=== PATIENT | female | born 1960 | race Hispanic/Latino ===

== ENCOUNTER 2024-08-17 16:02 | Emergency (ER) | payer OTHER ==
[~2024-08-17] VITALS: Ht 162.6 cm; Wt 97.1 kg
--- NOTE | 2024-08-17 16:24 | NUR ---
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 OCCURED AT [address] [facility] IN [facility]
--- NOTE | 2024-08-17 16:25 | NUR ---
TC TO [place] [employer], TALKED TO PT VIA PHONE, ADVISED PT TO GO IN TO POLICE STATION AFTER DISCHARGE
[2024-08-17] MEDS ORDERED: AMOX1TAB16 PO (16:27)
[2024-08-17] MEDS ORDERED: IBUP-2077 PO (16:27)
[2024-08-17] MEDS ORDERED: MUPI22O TP (16:27)
[2024-08-17 16:28] VITALS: BP 163/76; PULSE 66; RESP 16; TEMP 97.9; O2SAT 98
--- NOTE | 2024-08-17 16:28 | ERN ---
ED Note History of Present Illness Stated Complaint: DOG BITES Chief Complaint: Animal Bite Time Seen by MD: 16:07 Dictation: PATIENT IS A 64-YEAR-OLD FEMALE HERE WITH SEVERAL PUNCTURE WOUNDS TO THE POSTERIOR RIGHT CALF BY HER PUPPIES1 HOUR PRIOR TO ARRIVAL. SHE STATES THE DOGS BELONG TO HER AND HER FULLY VACCINATED. SHE STATES HER LAST TETANUS SHOT IS UNKNOWN AND HAS NO ALLERGIES TO MEDICATIONS. Allergies: Coded Allergies: No Known Allergies (Unverified Allergy, Unknown, 08/17/24) Home Meds Active Scripts Ibuprofen (Ibuprofen 800 mg Tab) 800 Mg Tab, 800 MG PO Q8H PRN for fever or pain, #30 TAB 0 Refills Prov:ABDIRAHMAN CHERRY ADMINISTRATIVE HEARING OFFICER 08/17/24 Mupirocin (Bactroban 2% Oint) 2 % Oint, 1 APPL TP TID for 5 Days, #15 GM 0 Refills apply to affected area(s) Prov:ABDIRAHMAN CHERRY NP 08/17/24 Amoxicillin/Potassium Clav (Amox Tr-K Clv 875-125 mg Tab) 875 Mg-125 Mg Tablet, 1 EACH PO BID for 7 Days, #14 TAB 0 Refills Prov:ABDIRAHMAN CHERRY NP 08/17/24 Past Medical History Past Medical History: Diabetes-Type II Surgical History: Other Surgical History Other: HAND History: Not Applicable RN Note Reviewed/Agreed w/PFSH: Yes Review of System Dictation CONSTITUTIONAL: NEGATIVE EXCEPT FOR HPI HEAD/FACE: NEGATIVE EXCEPT FOR HPI EENT: NEGATIVE EXCEPT FOR HPI RESPIRATORY: NEGATIVE EXCEPT FOR HPI GASTROINTESTINAL/ABDOMINAL: NEGATIVE EXCEPT FOR HPI GENITOURINARY: NEGATIVE EXCEPT FOR HPI MUSCULOSKELETAL: NEGATIVE EXCEPT FOR HPI PUNCTURE WOUNDS TO POSTERIOR RIGHT CALF NO ACTIVE BLEEDING INTEGUMENTARY: NEGATIVE EXCEPT FOR HPI NEUROLOGICAL/PSYCH: NEGATIVE EXCEPT FOR HPI HEMATOLOGIC/LYMPHATIC: NEGATIVE EXCEPT FOR HPI ALL SYSTEMS NEGATIVE, EXCEPT NOTED ABOVE. 13 POINT REVIEW OF SYSTEMS ASSESSED AND ALL NEGATIVE EXCEPT FOR ABOVE. Initial Vital Sign VS Vital Signs Date Time Temp Pulse Resp B/P (MAP) Pulse Ox O2 Delivery O2 Flow Rate FiO2 08/17/24 16:16 97.9 66 16 163/76 98 Room Air 0 08/17/24 16:28 21 Physical Exam Dictation VITAL SIGNS REVIEWED GENERAL APPEARANCE: ALERT, ORIENTED X 3, MILD ACUTE DISTRESS, WELL DEVELOPED, NOURISHED. HEAD AND FACE: NON-TRAUMATIC. EYES: PERRL, PINK CONJUNCTIVAS, EYELID NO TRAUMA, ANTERIOR CHAMBER WITH ARCUS SENILIS. EARS: PINNAS INTACT AND NO SIGNS OF TRAUMA OR ERYTHEMA EAR CANALS CLEAR AND NO DISCHARGE TM NO ERYTHEMA NOSE: NO DISCHARGE, NO BLEEDING. OROPHARYNX: MOUTH NORMAL, TONGUE PINK, PHARYNX CLEAR,NO ERYTHEMA, TONSILS NO EXUDATES, NO ABSCESSES NOTED, MUCOUS MEMBRANE MOIST NECK: SUPPLE, NON-TENDER, NO THYROMEGALY, NO MASSES, NO JVD, NO BRUITS BREAST:DEFERRED CHEST:NO TENDERNESS, NO CREPITUS, NO PARADOXICAL MOVEMENT, NO RETRACTIONS LUNGS:CLEAR, WELL-VENTILATED, SYMMETRIC, NO RALES, NO WHEEZING, NO RHONCHI, NO STRIDOR, GOOD BREATH SOUNDS BILATERALLY HEART: REGULAR RATE, REGULAR RHYTHM, NO MURMUR, NO GALLOPS VASCULAR: NO PERIPHERAL EDEMA, ABDOMEN: SOFT, POSITIVE BOWEL SOUNDS, NONDISTENDED, NO GUARDING, NONTENDER, NO REBOUND, NO MASSES NO HEPATOMEGALY, NO SPLENOMEGALY, NO UGARTE'S SIGN, NO HERNIAS. RECTAL: DEFERRED GENITAL: DEFERRED NEUROLOGICAL: NORMAL SPEECH, MOTOR FUNCTION INTACT, SENSORY FUNCTION INTACT MUSCULOSKELETAL: NECK NONTENDER, FULL RANGE OF MOTION, BACK NONTENDER, FULL RANGE OF MOTION, EXTREMITIES: NONTENDER, FULL RANGE OF MOTION SKIN: COLOR PINK, DRY, MULTIPLE PUNCTURE WOUNDS TO POSTERIOR RIGHT CALF, NO ACTIVE BLEEDING. NO SUTURE REPAIR REQUIRED. LYMPHATIC: DEFERRED Results (Laboratory/Radiology) Labs Reviewed?: Yes ED Course ED Course Orders Procedure Category Date Status Time Amox/Clav 875/125mg PHA 08/17/24 Complete Tab (Augmentin 875-1 16:30 Ketorolac 60mg/2ml PHA 08/17/24 Complete (Toradol 60mg/2ml) 16:30 Neomy PHA 08/17/24 Complete Sulf/Bacitra/Polymyxin 16:30 Acetaminophen 500mg PHA 08/17/24 Complete Tab (Tylenol 500mg T 16:30 *Nursing CPOE 08/17/24 Transmitted Communication: 16:19 Current Medications Medications (Trade) Dose Ordered Sig/Kartik Route PRN Reason Start Time Stop Time Status Last Admin Dose Admin Acetaminophen (TYLenol 500MG TAB) 1,000 mg ONCE ONCE PO 08/17/24 16:30 08/17/24 16:31 DC 08/17/24 16:34 Amoxicillin/ Clavulanate Potassium (Augmentin 875-125 Tablet) 1 each ONCE ONCE PO 08/17/24 16:30 08/17/24 16:31 DC 08/17/24 16:35 Ketorolac Tromethamine (toRADol 60MG/ 2ML) 60 mg ONCE ONCE IM 08/17/24 16:30 08/17/24 16:31 DC 08/17/24 16:35 Neomycin/ Polymyxin/ Bacitracin (Triple Antibiotic Ointment) 1 appl ONCE ONCE TP 08/17/24 16:30 08/17/24 16:31 DC 08/17/24 16:35 Vital Signs Date Time Temp Pulse Resp B/P (MAP) Pulse Ox O2 Delivery O2 Flow Rate FiO2 08/17/24 16:28 97.9 66 16 163/76 98 Room Air* 0 21 08/17/24 16:16 97.9 66 16 163/76 98 Room Air 0 1625/NO LABS OR IMAGING INDICATED. PATIENT WILL BE TREATED EMPIRICALLY WITH AUGMENTIN 875, TETANUS SHOT WE WILL BE UPDATED AND LAW ENFORCEMENT WE WILL BE NOTIFIED. Medical Decision Making MDM MEDICAL DISCHARGE MAKING BASED ON EMPIRIC TREATMENT FOR A DOG BITE WITH PUNCTURE WOUNDS TO RIGHT CALF TETANUS SHOT WAS UPDATED PATIENT LOADED WITH THE AUGMENTIN 875 DRESSINGS WERE APPLIED TO PUNCTURE WOUNDS PATIENT INSTRUCTED TO FOLLOW UP WITH HER PRIMARY CARE MDM: Differential diagnosis: Dog bite, puncture wound Risk of complication and/or morbidity or mortality of patient management: None Medications-Per medication reconciliation Need for hospitalization: Patient does not meet criteria for hospitalization. Need for emergency major/minor surgery: No There are no social concerns with this patient. Prescription drug management Prescriptions will include symptomatic care I independently interpreted the test that were performed, results were reviewed by me and considered findings on radiology if order DX & DISP Disposition: Discharge Departure Impression: Primary Impression: Dog bite of right calf Additional Impression: Puncture wound Condition: Stable Scripts Ibuprofen (Ibuprofen 800 mg Tab) 800 Mg Tab 800 MG PO Q8H PRN for fever or pain, #30 TAB 0 Refills Prov: ABDIRAHMAN CHERRY NP 08/17/24 Mupirocin (Bactroban 2% Oint) 2 % Oint 1 APPL TP TID for 5 Days, #15 GM 0 Refills apply to affected area(s) Prov: ABDIRAHMAN CHERRY ADMINISTRATIVE HEARING OFFICER 08/17/24 Amoxicillin/Potassium Clav (Amox Tr-K Clv 875-125 mg Tab) 875 Mg-125 Mg Tablet 1 EACH PO BID for 7 Days, #14 TAB 0 Refills Prov: ABDIRAHMAN CHERRY NP 08/17/24 Additional Instructions: FOLLOW-UP WITH PRIMARY CARE PROVIDER IN 1 TO 2 DAYS. TAKE MEDICATIONS DIRECTED HERE IN THE EMERGENCY ROOM. OKAY TO CONTINUE HOME MEDICATIONS UNLESS OTHERWISE DISCUSSED DURING YOUR VISIT IN THE EMERGENCY ROOM TODAY. RETURN TO YOUR NEAREST EMERGENCY ROOM IF SYMPTOMS WORSEN OR IF THERE IS NO IMPROVEMENT. CALL 911 IF YOU NEED IMMEDIATE ASSISTANCE. TAKE TYLENOL OR MOTRIN [id number] NEEDED AND IF NO CONTRAINDICATIONS ARE PRESENT. INCREASE ORAL HYDRATION. A WOUND CULTURE OR URINE CULTURE WAS ORDERED HERE IN THE EMERGENCY ROOM DEPARTMENT PLEASE FOLLOW-UP WITH PRIMARY CARE PROVIDER AND ADVISE THEM TO GET REPEAT PORTS FROM OUR FACILITY. IF YOU HAD ANY DENNIS WRAP/SPLINTS THAT WERE APPLIED HERE, PLEASE DO NOT REMOVE THEM UNTIL YOU SEE YOUR PRIMARY CARE OR SPECIALTY. TAKE ANTIBIOTICS DIRECTED UNTIL GONE. APPLY BACTROBAN OINTMENT WITH DRESSING TO PUNCTURE WOUNDS TO CALF3 TIMES A DAY FOR FIVE DAYS. FOLLOW UP WITH YOUR PRIMARY CARE DOCTOR Time of Disposition: 16:26 I have reviewed the case, and I agree with, Diagnosis and Plan I performed the substantive portion of the visit. I have reviewed and personally made and approve the management plan that is documented in the notes by myself or the TRACEY. I acknowledge full responsibility for the patient's management plan. ABDIRAHMAN CHERRY NP Aug 17, 2024 16:28 VALENTÍN CORADO MD Aug 18, 2024 18:34
--- NOTE | 2024-08-17 16:32 | NUR ---
CASE #: [id number], OFFICER MIGUEL #[id number]
[2024-08-17] MEDS: acetaMINOPHEN 500 MG TABLET PO ONE (16:34)
[2024-08-17] MEDS: AMOX/CLAV 875/125MG TAB PO ONE (16:35)
[2024-08-17] MEDS: NEOMY SULF/BACITRA/POLYMYXIN B 1 EACH PACKET TP ONE (16:35)
[2024-08-17] MEDS: ketOROlac 60 MG VIAL (30MG/ML) IM ONE (16:35)
== END 2024-08-17 16:56 | disposition home or self-care (01) ==
LOC: EDH 16:02
DX: S81.831A Puncture wound without foreign body, right lower leg, initial encounter (principal); E11.9 Type 2 diabetes mellitus without complications; W54.0XXA Bitten by dog, initial encounter; Y93.89 Activity, other specified; Y92.89 Other specified places as the place of occurrence of the external cause; Y99.8 Other external cause status
CPT/HCPCS: 99284; 96372; J1885

== ENCOUNTER 2024-08-28 16:03 | Emergency (ER) | payer OTHER ==
[~2024-08-28] VITALS: Ht 162.6 cm; Wt 97.1 kg
[~2024-08-28 16:03] MED LIST: AMOX1TAB16 PO; IBUP-2077 PO; MUPI22O TP
[2024-08-28 16:32] VITALS: BP 150/80; PULSE 65; RESP 16; TEMP 98.1; O2SAT 96
--- NOTE | 2024-08-28 16:39 | ERN ---
ED Note History of Present Illness Stated Complaint: WOUND CHECK, DOG BITE Chief Complaint: Wound Check Time Seen by MD: 16:14 Dictation: 64-year-old female who was bit by her dog 1 week ago returned to the emergency department for a wound check. Denies fever and chills. Reports swelling in redness around the wound. Allergies: Coded Allergies: No Known Allergies (Unverified Allergy, Unknown, 08/17/24) Home Meds Active Scripts Ibuprofen (Ibuprofen 800 mg Tab) 800 Mg Tab, 800 MG PO Q8H PRN for fever or pain, #30 TAB 0 Refills Prov:ABDIRAHMAN CHERRY NP 08/17/24 Mupirocin (Bactroban 2% Oint) 2 % Oint, 1 APPL TP TID for 5 Days, #15 GM 0 Refills apply to affected area(s) Prov:ABDIRAHMAN CHERRY NP 08/17/24 Amoxicillin/Potassium Clav (Amox Tr-K Clv 875-125 mg Tab) 875 Mg-125 Mg Tablet, 1 EACH PO BID for 7 Days, #14 TAB 0 Refills Prov:ABDIRAHMAN CHERRY NP 08/17/24 Past Medical History Past Medical History: Diabetes-Type II Surgical History: Other Surgical History Other: HAND History: Not Applicable Review of System Dictation NEGATIVE EXCEPT PER HPI Constitutional: Negative for fever,chills, and weight loss Eyes: Negative for injury, pain,redness, and discharge ENT: Negative for injury,pain or swelling Cardiovascular: denies chest pain, palpitations, and edema Respiratory: Negative for shortness of breath, cough, and wheezing, Abdomen/GI: Negative for abdominal pain, nausea, vomiting, diarrhea, and constipation Back: Negative for injury and pain : Negative for injury, bleeding and discharge MS/Extremity: Negative for injury and deformity Skin: Right calf Neuro: Negative for headache, weakness, numbness, tingling, and seizure Psych: Negative for suicide ideation, homicidal ideation, and hallucinations Initial Vital Sign VS Vital Signs Date Time Temp Pulse Resp B/P (MAP) Pulse Ox O2 Delivery O2 Flow Rate FiO2 08/28/24 16:21 97.9 67 16 150/85 96 Room Air 08/28/24 16:32 0 21 Physical Exam Dictation General: awake, alert, NAD Head/Face: Normocephalic, atraumatic Eyes: PERRL, EOMI, vision at baseline ENT: oral cavity clear, TMs clear, no signs of infection Neck: Trachea midline, supple, no nuchal rigidity Cardiovascular: RRR, normal S1/S2, No MRGs, no JVD Respiratory: CTAB, no respiratory distress, No rales or wheezes Abdomen: Soft , no tender Skin: Right calf erythema/edema MS/Extremity: Pulses equal, no cyanosis, neurovascular intact, FROM Neuro: COAx4, GCS 15, strength 5/5, CN 2-12 intact, normal cerebellar exam, normal gait, Psych: Normal behavior, mood, and affect normal Results (Laboratory/Radiology) Laboratory/Radiology Laboratory Tests Test 08/28/24 16:50 White Blood Count 7.2 K/uL (4.8-10.8) Red Blood Count 4.29 MIL/uL (4.00-5.50) Hemoglobin 12.6 g/dL (12.0-16.0) Hematocrit 38.2 % (36-48) Mean Corpuscular Volume 89.0 fL (79-99) Mean Corpuscular Hemoglobin 29.4 pg (27.0-33.0) Mean Corpuscular Hemoglobin Concent 33.0 g/dL (32.0-36.0) Red Cell Distribution Width 13.5 % (11.0-15.5) Platelet Count 246 K/uL (130-400) Mean Platelet Volume 10.7 fL (7.5-10.5) H Nucleated Red Blood Cells 0.0 % (0.0-0.19) ED Course ED Course Orders Procedure Category Date Status Time Cbc W Manual Diff LAB 08/28/24 In Process 16:36 Vital Signs Date Time Temp Pulse Resp B/P (MAP) Pulse Ox O2 Delivery O2 Flow Rate FiO2 08/28/24 16:32 98.1 65 16 150/80 96 Room Air* 0 21 08/28/24 16:21 97.9 67 16 150/85 96 Room Air Medical Decision Making MDM 64-year-old female who came for check on her wound localized in the right calf, wound was caused by dog bites around 1 week ago. The patient was in at this facility was discharged on Augmentin as well bacitracin. Patient denies fever, chills. Dog bite wound CBC ordered---> WBC within normal limits Plan to continue antibiotic therapy. Augmentin b.i.d. total of 12 days, patient was prescribed previously 7 days, I sent antibiotics to her pharmacy for another 5 days. DX & DISP Disposition: Discharge Departure Impression: Primary Impression: Dog bite of right calf Additional Impression: Puncture wound Condition: Stable Scripts Amoxicillin/Potassium Clav (Amox Tr-K Clv 875-125 mg Tab) 875 Mg-125 Mg Tablet 1 TAB PO BID for 5 Days, #10 TAB 0 Refills Prov: MASON MONZON MD 08/28/24 Additional Instructions: RETURN TO ER FOR ANY ACUTE OR WORSENING SYMPTOMS. FOLLOW-UP IN 1-2 DAYS WITH PRIMARY PROVIDER FOR RECHECK OF TODAY'S SYMPTOMS. Referrals: RAHEEL BLEDSOE PA-C (PCP) Time of Disposition: 17:11 MASON MONZON MD Aug 28, 2024 16:39
[2024-08-28 16:55] LABS: HEMATOCRIT 38.2 % (36-48); MEAN CORPUSCULAR HEMOGLOBIN 29.4 pg (27.0-33.0); PLATELET COUNT (AUTO) 246 K/uL (130-400); RED BLOOD CELL COUNT(AUTO) 4.29 MIL/uL (4.00-5.50); RED CELL DISTRIBUTION WIDTH 13.5 % (11.0-15.5); WHITE BLOOD COUNT (AUTO) 7.2 K/uL (4.8-10.8)
[2024-08-28] MEDS ORDERED: AMOX1TAB16 PO (17:13)
[2024-08-28 18:25] LABS: LYMPHOCYTES % (MANUAL) 23 % (22-44); MAN.DIFF COMMENT-IMPRESSION MANUAL DIFFERENTIAL; MONOCYTES % (MANUAL) 4 % (2-9); PLATELET MORPHOLOGY COMMENT ADEQUATE; SEGMENTED NEUTROPHILS % 73 % (40-70); TOTAL CELLS COUNTED 100
== END 2024-08-28 17:44 | disposition home or self-care (01) ==
LOC: EDH 16:03
DX: S81.851A Open bite, right lower leg, initial encounter (principal); E11.9 Type 2 diabetes mellitus without complications; Z79.899 Other long term (current) drug therapy; W54.0XXA Bitten by dog, initial encounter; Y93.89 Activity, other specified; Y92.89 Other specified places as the place of occurrence of the external cause; Y99.8 Other external cause status
CPT/HCPCS: 36415; 85025; 99283

== ENCOUNTER → 2024-09-28 | Outpatient (CLI) | payer OTHER ==
[~2024-09-28] MED LIST changes: +LIDOCAINE HCL 4% LTA SOL 4 ML VIAL TP ONE
== END | disposition home or self-care (01) ==
LOC: WHH 10:19
PROVIDERS: ATTEND Family Medicine
DX: E11.622 Type 2 diabetes mellitus with other skin ulcer (principal); L97.811 Non-pressure chronic ulcer of other part of right lower leg limited to breakdown of skin; I87.2 Venous insufficiency (chronic) (peripheral); E78.5 Hyperlipidemia, unspecified; Z79.899 Other long term (current) drug therapy
CPT/HCPCS: 99215; A4450

== ENCOUNTER → 2024-10-05 | Outpatient (CLI) | payer OTHER | END | disposition home or self-care (01) | LOC: WHH 09:58 | PROVIDERS: ATTEND Family Medicine | DX: E11.622 Type 2 diabetes mellitus with other skin ulcer (principal); L97.812 Non-pressure chronic ulcer of other part of right lower leg with fat layer exposed; I87.2 Venous insufficiency (chronic) (peripheral); S81.851D Open bite, right lower leg, subsequent encounter; E78.5 Hyperlipidemia, unspecified; Z79.899 Other long term (current) drug therapy; W54.0XXD Bitten by dog, subsequent encounter | CPT/HCPCS: 11042 ==

== ENCOUNTER → 2024-10-12 | Outpatient (CLI) | payer OTHER | END | disposition home or self-care (01) | LOC: WHH 10:01 | PROVIDERS: ATTEND Family Medicine | DX: E11.622 Type 2 diabetes mellitus with other skin ulcer (principal); L97.812 Non-pressure chronic ulcer of other part of right lower leg with fat layer exposed; I87.2 Venous insufficiency (chronic) (peripheral); E78.5 Hyperlipidemia, unspecified; Z79.899 Other long term (current) drug therapy | CPT/HCPCS: 11042 ==

== ENCOUNTER → 2024-10-19 | Outpatient (CLI) | payer OTHER ==
[~2024-10-19] MED LIST changes: -LIDOCAINE HCL 4% LTA SOL 4 ML VIAL TP ONE
== END | disposition home or self-care (01) ==
LOC: WHH 10:03
PROVIDERS: ATTEND Family Medicine
DX: E11.622 Type 2 diabetes mellitus with other skin ulcer (principal); L97.812 Non-pressure chronic ulcer of other part of right lower leg with fat layer exposed; I87.2 Venous insufficiency (chronic) (peripheral); E78.5 Hyperlipidemia, unspecified; Z79.899 Other long term (current) drug therapy
CPT/HCPCS: 99214

== ENCOUNTER → 2024-10-29 | Outpatient (CLI) | payer OTHER | END | disposition home or self-care (01) | LOC: WHH 08:05 | PROVIDERS: ATTEND Family Medicine | DX: E11.622 Type 2 diabetes mellitus with other skin ulcer (principal); L97.812 Non-pressure chronic ulcer of other part of right lower leg with fat layer exposed; I87.2 Venous insufficiency (chronic) (peripheral); E78.5 Hyperlipidemia, unspecified; Z79.899 Other long term (current) drug therapy | CPT/HCPCS: 99214; A6212; A6209 ==

== ENCOUNTER → 2024-11-05 | Outpatient (CLI) | payer OTHER | END | disposition home or self-care (01) | LOC: WHH 08:02 | PROVIDERS: ATTEND Family Medicine | DX: E11.622 Type 2 diabetes mellitus with other skin ulcer (principal); L97.812 Non-pressure chronic ulcer of other part of right lower leg with fat layer exposed; I87.2 Venous insufficiency (chronic) (peripheral); E78.5 Hyperlipidemia, unspecified; Z79.899 Other long term (current) drug therapy | CPT/HCPCS: 99214; A6212; A6209 ==

== ENCOUNTER → 2024-11-12 | Outpatient (CLI) | payer OTHER ==
[~2024-11-12] MED LIST changes: +HONEY 1 APPL/ML TUBE TP ONE
== END | disposition home or self-care (01) ==
LOC: WHH 08:03
PROVIDERS: ATTEND Family Medicine
DX: E11.622 Type 2 diabetes mellitus with other skin ulcer (principal); L97.812 Non-pressure chronic ulcer of other part of right lower leg with fat layer exposed; I87.2 Venous insufficiency (chronic) (peripheral); E78.5 Hyperlipidemia, unspecified; Z79.899 Other long term (current) drug therapy
CPT/HCPCS: 99214; A6212; A6209